=== PATIENT | female | born 1965 | race Caucasian/White ===

== ENCOUNTER → 2025-07-22 | Day surgery (SDC) | payer MEDICARE, MEDICAID ==
[~2025-07-22] MED LIST: ALBUTEROL SULFATE 2.5 MG/0.5 ML NEB SOLUTION NEB ONE; BENZOCAINE 20% 50 MCG/SPRAY 57 GM ONE; CARB-92 PO; CLON-595 PO; DULO60CA73 PO; FentaNYL CITRATE PF 100 MCG/2 ML VIAL ONE; LIDOCAINE 2% 11 ML JELLY ONE; LIDOCAINE 4% 50 ML SOLUTION ONE; MELO-107 PO; MIDAZOLAM HCL 2 MG/2 ML VIAL ONE; MIDO5TAB29 PO; SODIUM CHLORIDE 0.9% 1,000 ML ONE
[2025-07-22] MEDS: SODIUM CHLORIDE 0.9% 1,000 ML IV ONE ×2 (08:02→10:09)
[2025-07-22 09:30] VITALS: PULSE 64; RESP 18; O2SAT 100
== END | disposition home or self-care (01) ==
LOC: SDS 06:27
PROVIDERS: ATTEND Internal Medicine Critical Care Medicine
DX: R05.3 Chronic cough (principal); R06.2 Wheezing; R49.0 Dysphonia; R06.1 Stridor; J43.9 Emphysema, unspecified; Z79.899 Other long term (current) drug therapy; Z90.49 Acquired absence of other specified parts of digestive tract; Z98.890 Other specified postprocedural states
CPT/HCPCS: 31623; 87206; 87101; 87220; 87070; 31624; 71045; 87015; J7030 ×2; J3010; J2250; J2919; 88108; J7613; Z7610